=== PATIENT | male | born 1990 | race Caucasian/White ===

== ENCOUNTER 2020-07-25 04:34 | Observation (INO) | payer OTHER, SELFPAY ==
[2020-07-25] MEDS ORDERED: Ketorolac Tromethamine 30 MG/ML VIAL ONE (04:45)
[2020-07-25] MEDS ORDERED: Piperacillin/Tazobactam 4.5 GM VIAL ONE (06:04)
--- NOTE | 2020-07-25 07:06 | ULT ---
RIGHT UPPER QUADRANT ULTRASOUND: Date: 07/25/2020 INDICATION: Abdominal pain. COMPARISON: Prior CT of abdomen and pelvis dated 07/25/2020 at 0229 hours. FINDINGS: There is a gallstone at the gallbladder neck with gallbladder distention, wall thickening, and perich olecystic fluid. There is report of a positive sonographic Winkler's sign. Common bile duct measured 4 .7 mm. Visualized liver, pancreas, and right kidney appear within normal limits. The right kidney leonard sures 11.9 x 6.7 x 6.4 cm. IMPRESSION: Findings suspicious for acute calculus cholecystitis. POS: BH
--- NOTE | 2020-07-25 07:36 | PDOC.H&P ---
- History & Physical Encounter Time: 07/25/20 Encounter Time: 07:29 Chief complaint-I thought I was having chest pain History of present illness-the patient is a 29-year-old gentleman who presented to the [place] [facility] with a 2-day history of right upper quadrant pain. This was after eating fried chicken. He has had similar episodes over the last 2 years. Typically, he takes Pepto-Bismol and then vomits. This seems to alleviate the pain. This treatment was unsuccessful this time. Pain is been persistent, nonradiating, 8 out of 10. Constant and sharp. Eating makes it worse. Pain medicine seems to have made it better. He has had nausea and vomiting. Past medical history-depression Past surgical history-appendectomy and 2 right knee surgeries Allergies-states Tylenol 3-itching but not anaphylaxis Medications Effexor 75 mg by mouth every evening Family history-no family history of cancers or anesthesia issues Social history-no tobacco use, occasional alcohol use, no drug use Review of systems-negative for 10 system, two-point per system other than HPI Vital signs-97.7, 142/93, 85 General-[no acute distress, well-nourished] Head-[normocephalic, atraumatic] HEENT- [EOMI], [PERRLA] Neck-[trachea midline, supple] Lungs-[grossly clear to auscultation], [normal air movement] Heart-[regular regular], [no murmurs] Abdomen-[soft], [nondistended], patient is point tender in the right upper quadrant, positive Winkler sign, [normal active bowel sounds] Musculosketal-[full range of motion], [no gross deformity] Psychiatric-[good insight, good judgment] Skin-[good turgor, no jaundice] Neuro- [GCS 15], [CN II-XII intact] White blood cell count as well as LFTs from outside institution are normal. CT scan abdomen and pelvis, ultrasound of the right upper quadrant-independently viewed the images, I also read the radiologist interpretation-gallbladder is distended. Gallbladder wall is 4 mm. Common bile duct is normal. There are stones present. There appears to be some pericholecystic fluid Assessment- #1-acute cholecystitis-the patient's ultrasound and physical exam are consistent with acute cholecystitis. Currently, his labs are within normal limits. He is afebrile. We have discussed the pathophysiology of cholecystitis and the fact that he will need an operation. Preoperatively, we will order a Covid test. #3-fuxoixamxnop-pkagpsp is slightly hypertensive in the ER this morning. This could be secondary to pain. Patient carries no previous diagnosis of hypertension #6-veekoaegdv-maxtakz is on Effexor. Continue as an inpatient Plan-n.p.o., Covid test, antibiotics. Patient will need an operation prior to discharge. I will be signing the patient out this morning.
[2020-07-25] MEDS ORDERED: Promethazine HCl 25 MG/ML VIAL IM PRN (07:38)
[2020-07-25] MEDS ORDERED: Ondansetron PF 4 MG/2 ML Vial IVP PRN (07:38)
[2020-07-25] MEDS ORDERED: Morphine 2 MG/ML VIAL SLOW IVP PRN (07:38)
[2020-07-25] MEDS ORDERED: Calcium Carbonate 500 MG ChewTAB PO PRN (07:38)
[2020-07-25] MEDS ORDERED: Morphine 4 MG/ML VIAL SLOW IVP PRN (07:38)
[2020-07-25] MEDS ORDERED: hydrALAZINE 20 MG/ML VIAL SLOW IVP PRN (07:38)
[2020-07-25] MEDS ORDERED: Mag-Al 1200 mg/1200 mg/30 ML UDCUP PO PRN (07:38)
[2020-07-25] MEDS ORDERED: Famotidine/PF 20 mg/2ml Vial SLOW IVP SCH (09:00)
[2020-07-25] MEDS ORDERED: Venlafaxine HCl XR 75 MG CAP PO SCH ×2 (09:00→21:00)
[2020-07-25] MEDS: Lactated Ringer's 1,000 ML IV SCH ×2 (09:17→17:28)
[2020-07-25] MEDS ORDERED: PROPOFOL 200 MG/20 ML VIAL ONE (09:22)
[2020-07-25] MEDS ORDERED: Ondansetron PF 4 MG/2 ML Vial ONE (09:22)
[2020-07-25] MEDS ORDERED: Glycopyrrolate 0.2 MG/ML 5 ML SYRINGE ONE ×2 (09:22)
[2020-07-25] MEDS ORDERED: Dexamethasone 20 MG/5 ML VIAL ONE (09:22)
[2020-07-25] MEDS ORDERED: Lidocaine 1% PF 5 ML VIAL ONE (09:22)
[2020-07-25] MEDS ORDERED: Rocuronium Bromide 10 MG/ML (10ML VIAL) ONE (09:22)
[2020-07-25] MEDS ORDERED: Iothalamate Meglumine 60% 50 ML VIAL FS ONE (09:29)
[2020-07-25] MEDS ORDERED: Bupivacaine/Epinephrine 0.25% 30 ML VIAL ONE (09:29)
[2020-07-25] MEDS ORDERED: Fentanyl 100 MCG/2 ML VIAL ONE ×3 (10:01→12:18)
[2020-07-25] MEDS ORDERED: Midazolam HCl 2 mg/2 ml Vial ONE (10:01)
[2020-07-25] MEDS ORDERED: CEFAZOLIN 2 GM in Premix Bag 1 BAG IVPB SCH (10:15)
[2020-07-25] MEDS ORDERED: FLU VACC QS2020-21(6MOS UP)/PF 60 MCG/0.5 ML SYRINGE IM ONE (11:00)
[2020-07-25] MEDS ORDERED: Piperacillin/Tazobactam 3.375 GM in Sodium Chloride 0.9% 100 ML IVPB SCH (12:00)
[2020-07-25] MEDS ORDERED: Meperidine HCl/PF 25 MG/ML VIAL ONE (12:26)
--- NOTE | 2020-07-25 12:39 | OP ---
DATE OF PROCEDURE: 07/25/2020 PREOPERATIVE DIAGNOSES: 1. Acute cholecystitis. 2. Cholelithiasis. POSTOPERATIVE DIAGNOSES: 1. Acute cholecystitis. 2. Cholelithiasis. OPERATION PERFORMED: Laparoscopic cholecystectomy. ANESTHESIA: General endotracheal. ESTIMATED BLOOD LOSS: 50 mL. FLUIDS GIVEN: 1000 mL crystalloids. COUNTS: Sponge and instrument counts were verified as correct x2. COMPLICATIONS: None apparent at the time of operation. INDICATIONS FOR OPERATION: A 29-year-old man presented with epigastric and right upper quadrant abdominal pain after eating. Clinical and radiographic examinations were consistent with acute cholecystitis and cholelithiasis, for which the patient was brought to the operating room today for cholecystectomy. Findings are consistent with markedly dilated and elongated gallbladder in the usual anatomic location, partially encased by omental adhesions. DESCRIPTION OF PROCEDURE: Informed consent was obtained from the patient who was brought to the operating room and placed in supine position. Following general anesthesia, abdomen was sterilely prepped and draped in the usual fashion. The skin above the umbilicus was infiltrated with 0.25% Marcaine with epinephrine. A small curvilinear supraumbilical incision was made using an 11 scalpel. Umbilical stalk was grasped with Mauri and elevated. Veress needle was inserted through the incision and placed in the peritoneal cavity, through which the abdomen was insufflated with 3 L of CO2 gas. Intra-abdominal pressure noted at 2 mmHg. Following abdominal insufflation, the Veress needle was removed and a 5 mm trocar introduced using a Visiport under laparoscopy. Laparoscopy confirmed proper placement of the port. No injuries to underlying structures. Additional laparoscopy revealed the right upper quadrant partially encased by omental adhesions. Under direct laparoscopy, a 12-mm epigastric and two 5-mm right lateral subcostal ports were placed after the overlying skin was infiltrated with 0.25% Marcaine with epinephrine and appropriate incision was made. The patient was placed in a reverse Trendelenburg position, rotated to his left. I introduced a [place] dissector with cautery, using this to take down omental adhesions to expose the fundus of the gallbladder. Prestige grasper introduced through the right lateral subcostal port, grasping the fundus of the gallbladder, which was elevated cephalad. Omental adhesions were then bluntly dissected off the remainder of the gallbladder. A second Prestige grasper introduced through the right medial subcostal port, grasping the Vanda's pouch, which was retracted laterally. The peritoneum of the gallbladder was opened and the infundibulum using a [place] dissector. The cystic duct and arteries were individually dissected off the surrounding structures and a critical view of the triangle was obtained. The cystic duct was divided between clips, applying 2 clips proximally and 1 clip at the junction of the cystic duct and gallbladder. The cystic artery was also divided between clips in a similar fashion. The gallbladder itself was removed from the liver bed using cautery. It was delivered off the abdominal cavity using an EndoCatch. The gallbladder fossa was noted with some venous ooze due to significant amount of inflammation, and Carlitos was placed here to achieve hemostasis. The fascia of the epigastric port was then closed using 0 Vicryl suture and Endo closure device under laparoscopy. The abdomen was desufflated. All ports and instruments were removed and accounted for. Skin incisions were closed using 4-0 Monocryl suture in a subcuticular fashion. Dermabond was applied over incisional closure. The patient tolerated this operation without any apparent complication and was returned to recovery room in satisfactory condition. Job ID: [id number]
[2020-07-25] MEDS ORDERED: Sodium Chloride 0.9% 100 ML ONE (12:48)
[2020-07-25] MEDS ORDERED: Piperacillin/Tazobactam 3.375 GM VIAL ONE (12:48)
[2020-07-25] MEDS ORDERED: Ibuprofen 600 MG TAB PO PRN (12:55)
[2020-07-25] MEDS ORDERED: traMADol HCl 50 MG TAB PO PRN ×2 (12:55)
[2020-07-25] MEDS ORDERED: Ibuprofen 200 MG TAB PO PRN (13:01)
[2020-07-25] MEDS ORDERED: Non-Formulary Medication 1 EACH PO PRN (13:03)
[2020-07-25] MEDS ORDERED: Promethazine HCl 25 MG/ML VIAL IM/IV PRN (13:15)
[2020-07-25] MEDS ORDERED: Meperidine HCl/PF 25 MG/ML VIAL IV PRN (13:15)
[2020-07-25] MEDS ORDERED: Ondansetron HCl/PF 4 MG/2 ML Vial IVP PRN (13:15)
[2020-07-25] MEDS ORDERED: Acetaminophen 500 MG TAB PO SCH ×2 (14:00→16:00)
[2020-07-25 14:13] VITALS: BMI 35.9
[2020-07-25 16:30] VITALS: BP 122/76; TEMP 97.8
[2020-07-25 16:35] LABS: SARS-CoV-2 MS2 Positive; SARS-CoV-2 N Gene Negative; SARS-CoV-2 S Gene Negative; SARS-CoV-2 by NAA Not Detected (NotDetected); SARS-CoV-2 orf1ab Negative
[2020-07-25] MEDS ORDERED: Enoxaparin Sodium 40 MG/0.4 ML SYRINGE SC SCH (21:00)
--- NOTE | 2020-07-27 09:35 | DIS ---
DATE OF ADMISSION: 07/25/2020 DATE OF DISCHARGE: 07/25/2020 ADMISSION DIAGNOSES: Acute cholecystitis and acute cholelithiasis. DISCHARGE DIAGNOSES: Acute cholecystitis and acute cholelithiasis. CONSULTING PHYSICIAN: None. PROCEDURES: The patient went to the OR on July 25, 2020, and had a laparoscopic cholecystectomy. HOSPITAL COURSE: The patient is a 29-year-old male, who presented to the emergency department with abdominal pain. He was found to have acute cholecystitis and cholelithiasis and was admitted to the hospital. He went to the OR on the day of arrival for a laparoscopic cholecystectomy. Postoperatively, the patient was moving around safely. He was tolerating regular diet, voiding without difficulty, and pain was well controlled. He was discharged to the care of his family with a followup day in clinic with Dr. Francisco. DISCHARGE DISPOSITION: Home. DISCHARGE CONDITION: Satisfactory. PHYSICAL EXAMINATION: VITAL SIGNS: Temperature 97.8, pulse 67, respirations 18, oxygen saturation 96% on room air, and blood pressure 122/76. GENERAL: Well-appearing young male, sitting up in bed with no signs of acute distress. PULMONARY: Equal chest rise and fall. No signs of acute respiratory distress. ABDOMEN: Soft, appropriately tender to palpation, nondistended. NEUROLOGIC: GCS is 15. DISCHARGE INSTRUCTIONS: The patient was discharged home. Activity as tolerated. Regular diet. No therapy or equipment needs. DISCHARGE MEDICATIONS: Include, 1. Tylenol. 2. Ibuprofen. 3. Tramadol. 4. Effexor. FOLLOWUP APPOINTMENTS: The patient is to follow up with Dr. Francisco in clinic on August 09, 2020, at 2 p.m. This is a summary of the patient's hospitalization. For full details, please see his medical record in its entirety. The patient was seen and evaluated on the day of discharge by myself postoperatively. The [employer] prescription monitoring program was accessed, and the patient did not have any list of medications. He was ultimately discharged with tramadol, a medication used to control his pain while he was inpatient. This patient was seen and evaluated on the day of discharge by myself and Dr. Francisco. Job ID: [id number]
== END 2020-07-25 19:19 | disposition home or self-care (01) ==
LOC: ERS 04:34 → SURG B 06:07
PROVIDERS: ADMIT Surgery; ATTEND Surgery
PROC: 0FT44ZZ Resection of Gallbladder, Percutaneous Endoscopic Approach (ICD-10-PCS; principal; 2020-07-25)
DX: K80.12 Calculus of gallbladder with acute and chronic cholecystitis without obstruction (principal); I10 Essential (primary) hypertension; F32.9 Major depressive disorder, single episode, unspecified; Z88.5 Allergy status to narcotic agent; Z88.6 Allergy status to analgesic agent; Z20.828 Contact with and (suspected) exposure to other viral communicable diseases
CPT/HCPCS: 76705; 87635; 88304; 96365; 96375; G0378; J1100; J1885; J2175; J2250; J2405; J2543; J2704; J3010; J3490; S0028; U0003

== ENCOUNTER 2021-05-08 19:40 | Emergency (ER) | payer OTHER ==
[2021-05-08 20:30] LABS: #Basophils 0.1 thou/uL (0.0-0.2); #Eosinphils 0.3 thou/uL (0.0-0.7); #Monocytes 0.8 thou/uL (0.11-0.59); %Basophils 0.7 % (0.0-1.0); %Eosinophils 3.2 % (0.0-10.0); %Lymphocytes 24.6 % (21.0-51.0); %Monocytes 9.8 % (0.0-10.0); %Neutrophils 61.7 % (42.0-75.0); Hemoglobin 14.8 g/dL (14.0-18.0); Mean Corpuscular Hemoglobin 31.7 pg (27.0-31.0); Mean Corpuscular Volume 93.2 fL (78.0-98.0); Platelet Count 201 thou/uL (130-400); Red Blood Cell (RBC) Count 4.66 mill/uL (4.70-6.10); White Blood Cell (WBC) Count 8.1 thou/uL (4.8-10.8)
[2021-05-08 22:25] LABS: ALT (SGPT) 28 U/L (8-55); AST (SGOT) 22 U/L (5-34); Albumin 4.1 g/dL (3.5-5.0); Alkaline Phosphatase 66 U/L (40-110); Anion Gap 11 mmol/L (10-20); BUN (Urea Nitrogen) 16 mg/dL (8.9-20.6); Bilirubin, Total 0.4 mg/dL (0.2-1.2); Calc. Creatinine Clearance 0 mL/min (70-130); Calcium 9.4 mg/dL (7.8-10.44); Carbon Dioxide 28 mmol/L (22-29); Chloride 106 mmol/L (98-107); Glucose 80 mg/dL (70-105); Potassium 4.2 mmol/L (3.5-5.1); Protein, Total 7.1 g/dL (6.0-8.3); Sodium 141 mmol/L (136-145)
== END 2021-05-08 20:40 | disposition left against medical advice (07) ==
LOC: ERS 19:40
DX: Z53.21 Procedure and treatment not carried out due to patient leaving prior to being seen by health care provider (principal)
CPT/HCPCS: 36415; 80053; 85025